=== PATIENT | male | born 1995 | race Caucasian/White ===

== ENCOUNTER 2018-01-23 10:49 | Day surgery (SDC) | payer OTHER ==
[2018-01-23] MEDS: LR 1,000 ML IV (11:28)
[2018-01-23] MEDS ORDERED: CHLOROPROCAINE 2 % INJ PRES.FREE 20 ML VIAL (J2400) As Ordered (14:15)
[2018-01-23] MEDS ORDERED: fentaNYL 100 MCG/2 ML INJECTION (J3010) As Ordered (14:24)
[2018-01-23] MEDS ORDERED: MIDAZOLAM INJ 2 MG/2 ML VIAL (J2250) As Ordered (14:24)
[2018-01-23] MEDS: BUPIVACAINE LIPOSOME/PF 1.3% 20 ML VIAL (13.3MG/ML)(EXPAREL) As Ordered (14:36)
[2018-01-23] MEDS: LIDOCAINE 1% SDV INJ 30 ML VIAL As Ordered (14:45)
[2018-01-23] MEDS: BUPIVACAINE HCL 0.25% 30 ML VIAL As Ordered (14:45)
[2018-01-23] MEDS ORDERED: KETOROLAC 30 MG/ML VIAL (J1885) IV (16:00)
[2018-01-23] MEDS ORDERED: HYDROmorphone HCL 1 MG/ML SYRINGE (J1170) IV (16:15)
[2018-01-23] MEDS ORDERED: fentaNYL 100 MCG/2 ML INJECTION (J3010) IV (16:15)
[2018-01-23] MEDS ORDERED: NORCO, ANEXSIA 5/325MG TABLET (HYDROcodone/ACETAMINOPHEN) PO ×2 (16:15)
[2018-01-23] MEDS ORDERED: ONDANSETRON 4MG/2ML VIAL (J2405) IV ×2 (16:15)
[2018-01-23] MEDS ORDERED: LR 1,000 ML IV (16:15)
[2018-01-23] MEDS ORDERED: PERCOCET 5MG/325MG TAB PO (16:15)
== END 2018-01-23 17:32 | disposition home or self-care (01) ==
LOC: M SDC 10:49
DX: L05.91 Pilonidal cyst without abscess (principal); K58.9 Irritable bowel syndrome, unspecified; R01.1 Cardiac murmur, unspecified; F17.210 Nicotine dependence, cigarettes, uncomplicated
CPT/HCPCS: 11772

== ENCOUNTER → 2018-07-22 | Outpatient (CLI) | payer OTHER | LOC: M RAD 08:43 | DX: R60.0 Localized edema (principal); L05.91 Pilonidal cyst without abscess; S31.000D Unspecified open wound of lower back and pelvis without penetration into retroperitoneum, subsequent encounter; Y92.89 Other specified places as the place of occurrence of the external cause; Y93.89 Activity, other specified; X58.XXXA Exposure to other specified factors, initial encounter; Y99.8 Other external cause status | CPT/HCPCS: 76857 ==